=== PATIENT | female | born 1990 | race Caucasian/White ===

== ENCOUNTER 2016-09-11 10:23 | Emergency (ER) | payer OTHER | END 2016-09-11 11:55 | disposition home or self-care (01) | LOC: ER 10:23 | DX: E86.0 Dehydration (principal); J02.0 Streptococcal pharyngitis; D72.829 Elevated white blood cell count, unspecified; R00.0 Tachycardia, unspecified; R73.9 Hyperglycemia, unspecified; E66.9 Obesity, unspecified; K21.9 Gastro-esophageal reflux disease without esophagitis; Z90.49 Acquired absence of other specified parts of digestive tract; Z98.51 Tubal ligation status; Z88.2 Allergy status to sulfonamides | CPT/HCPCS: 36415; 87502; 87651; 96361; 96374; 96375; J0561; J1100 ==

== ENCOUNTER 2016-10-21 09:22 | Emergency (ER) | payer OTHER | END 2016-10-21 10:15 | disposition home or self-care (01) | LOC: ER 09:22 | DX: J02.0 Streptococcal pharyngitis (principal); Z90.49 Acquired absence of other specified parts of digestive tract; Z98.51 Tubal ligation status; Z88.2 Allergy status to sulfonamides | CPT/HCPCS: 87502; 87651 ==

== ENCOUNTER 2016-11-25 16:14 | Emergency (ER) | payer OTHER | END 2016-11-25 18:06 | disposition home or self-care (01) | LOC: ER 16:14 | DX: G43.909 Migraine, unspecified, not intractable, without status migrainosus (principal); Z88.2 Allergy status to sulfonamides; Z79.899 Other long term (current) drug therapy | CPT/HCPCS: 96374; 96375; J1200; J1885; J2765 ==